=== PATIENT | male | born 1965 | race Caucasian/White ===

== ENCOUNTER 2023-04-05 11:41 | Emergency (ER) | payer BC, SELFPAY ==
[2023-04-05 11:48] VITALS: BP 129/82; PULSE 81; RESP 17; TEMP 36.8; O2SAT 96; BMI 22.3
--- NOTE | 2023-04-05 11:54 | W.ED.EPISTAX ---
HPI - Epistaxis General: Chief complaint: Epistaxis Stated complaint: nose bleed, on blood thiners Time Seen by Provider: 04/05/23 11:46 Source: patient Mode of arrival: ambulatory Limitations: no limitations History of Present Illness: 57-year-old male states that he is on Brilinta he states he had a sinus infection he been blowing his nose frequently and states that this morning at 330 started having a nosebleed from the right nare. He states has not been able to get it to stop. Associated symptoms: Deny fever(s), headache(s) or vomiting Review of Systems Const: Denies: fever(s), chills, body aches or change in appetite ENMT: Reports: epistaxis; Denies: throat pain or dental pain Card: Denies: chest pain Resp: Denies: dyspnea GI: Denies: abdominal pain, nausea, vomiting or diarrhea : Denies: dysuria Musc: Denies: neck pain or back pain Skin/Breast: Denies: rash Neuro: Denies: headache(s) Physical Exam Const: COMMON NORMALS: no acute distress, patient oriented x3 and healthy appearing HENMT: COMMON NORMALS: normocephalic and atraumatic HEAD & SCALP: normocephalic and atraumatic OTHER: Epistaxis from right nare Eye: COMMON NORMALS: Equal, round and reactive pupils present and EOMs intact bilaterally PUPIL: Yes Equal, round and reactive pupils present Neck/C-Spine: COMMON NORMALS: full ROM and supple Chest: COMMONS NORMALS: normal inspection of the chest Resp: COMMON NORMALS: normal respiratory effort Cardio: COMMON NORMALS: regular rate RATE: regular rate Extremity: COMMON NORMALS: normal to inspection Neuro: COMMON NORMALS: patient oriented x3, moves all extremities and no focal motor deficits Psych: COMMON NORMALS: mental status grossly normal Skin: COMMON NORMALS: no rashes or lesions noted and no wounds GENERAL SKIN EXAM: no rashes or lesions noted Procedures Epistaxis Control Time Out Performed: Yes Nostril: right Device Inserted: hemostatic balloon (rhinorocket) Patient Tolerated Procedure: well Complications: continued epistaxis Course Vital Signs: Vital signs: Vital Signs Temperature 98.3 F 04/05/23 11:48 Pulse Rate 81 04/05/23 11:48 Respiratory Rate 17 04/05/23 11:48 Blood Pressure 129/82 04/05/23 11:48 Pulse Oximetry 96 04/05/23 11:48 Oxygen Delivery Me thod Room Air 04/05/23 11:48 MDM - Epistaxis Medical Decision Making Patient presents here with nosebleed did attempt a nasal clamp but he continued to bleed a Rhino Rocket was placed in his stop bleeding he is return in 2 days for Rhino Rocket removal we will place him on Keflex he is stable for discharge at this time Medical Records I reviewed the patient's medical records. No radiology studies performed this visit Discharge Plan Discharge Patient Disposition: Home Clinical Impression: Epistaxis Condition: Stable Prescriptions: New cephalexin 500 mg capsule 500 mg PO TID 3 Days Qty: 9 0RF No Action Toprol XL 50 mg Tablet Extended Release 24 Hr 50 mg PO QAM lisinopril 20 mg Tablet 20 mg PO QAM Aspir-81 81 mg Tablet,Delayed Release (Dr/Ec) 81 mg PO QAM Tylenol Ex Str Rapid Release 500 mg Tablet 500 mg PO Q6H PRN (Reason: Pain) Claritin 10 mg Tablet 10 mg PO DAILY PRN (Reason: Allergy Symptoms) Flovent HFA 110 mcg/actuation Hfa Aerosol Inhaler 2 puff INHALATION BID Brilinta 90 mg Tablet 90 mg PO Q12H Mucinex 600 mg Tablet Extended Release 12hr 600 mg PO BID PRN (Reason: Congestion) Discharge Orders: Discharge ED (Routine); Ordered 04/05/23 Ordered By: Coy Morataya Discharge Diet: Advance as tolerated Discharge Activity: Resume usual activity Patient Instructions: Nosebleed (ED) Coding Level of Care Code ED [employer]yl[employer]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
[2023-04-05] MEDS: oxymetazoline 0.05% Nasal Spray 15 mL 2 SPRAY NOSTRIL-B (11:55)
== END 2023-04-05 13:21 | disposition home or self-care (01) ==
PROVIDERS: Emergency Provider Emergency Medicine; PCP Physical Medicine & Rehabilitation
DX: R04.0 Epistaxis (principal); Z79.82 Long term (current) use of aspirin
CPT/HCPCS: 30901; 99283

== ENCOUNTER 2023-04-06 08:50 | Emergency (ER) | payer BC, MEDICAID, SELFPAY ==
[2023-04-06 09:00] VITALS: BP 157/90; PULSE 98; RESP 16; TEMP 36.7; O2SAT 97; BMI 22.3
--- NOTE | 2023-04-06 10:04 | W.ED.EPISTAX ---
HPI - Epistaxis General: Chief complaint: Upper Respiratory Infection Stated complaint: was here yesterday, runny nose Time Seen by Provider: 04/06/23 09:45 Source: patient Mode of arrival: ambulatory Limitations: no limitations History of Present Illness: 57-year-old male is seen here yesterday had epistaxis he had a nasal packing placed he is back today wanting the nasal packing removed he has not had any bleeding around it has had some discomfort has no other complaints. Associated symptoms: Deny fever(s), headache(s) or vomiting Review of Systems Const: Denies: fever(s), chills, body aches or change in appetite ENMT: Reports: epistaxis; Denies: throat pain or dental pain Card: Denies: chest pain Resp: Denies: dyspnea GI: Denies: abdominal pain, nausea, vomiting or diarrhea Musc: Denies: neck pain or back pain Skin/Breast: Denies: rash Neuro: Denies: headache(s) Physical Exam Const: COMMON NORMALS: no acute distress and patient oriented x3 HENMT: COMMON NORMALS: normocephalic HEAD & SCALP: normocephalic OTHER: Rhino Rocket in place to right nare Eye: COMMON NORMALS: conjunctivae normal CONJUNCTIVA: Yes conjunctivae normal Neck/C-Spine: COMMON NORMALS: supple Chest: COMMONS NORMALS: normal inspection of the chest Resp: COMMON NORMALS: normal respiratory effort Extremity: COMMON NORMALS: normal to inspection Neuro: COMMON NORMALS: patient oriented x3 Psych: COMMON NORMALS: mental status grossly normal Skin: COMMON NORMALS: no rashes or lesions noted GENERAL SKIN EXAM: no rashes or lesions noted Course Vital Signs: Vital signs: Vital Signs Temperature 98.1 F 04/06/23 09:00 Pulse Rate 87 04/06/23 10:32 Respiratory Rate 16 04/06/23 10:32 Blood Pressure 162/112 04/06/23 10:32 Pulse Oximetry 97 04/06/23 10:32 Oxygen Delivery Me thod Room Air 04/06/23 10:13 MDM - Epistaxis Medical Decision Making Patient presents with a nosebleed did remove the Rhino Rocket bleeding is stopped he is stable for discharge we will get him follow-up with ENT he is return if a starts having bleeding again he understands agrees to plan Medical Records I reviewed the patient's medical records. No radiology studies performed this visit Discharge Plan Discharge Patient Disposition: Home Clinical Impression: Epistaxis Condition: Stable Prescriptions: No Action Toprol XL 50 mg Tablet Extended Release 24 Hr 50 mg PO QAM lisinopril 20 mg Tablet 20 mg PO QAM Aspir-81 81 mg Tablet,Delayed Release (Dr/Ec) 81 mg PO QAM Tylenol Ex Str Rapid Release 500 mg Tablet 500 mg PO Q6H PRN (Reason: Pain) Claritin 10 mg Tablet 10 mg PO DAILY PRN (Reason: Allergy Symptoms) Flovent HFA 110 mcg/actuation Hfa Aerosol Inhaler 2 puff INHALATION BID Brilinta 90 mg Tablet 90 mg PO Q12H Mucinex 600 mg Tablet Extended Release 12hr 600 mg PO BID PRN (Reason: Congestion) cephalexin 500 mg capsule 500 mg PO TID 3 Days Qty: 9 0RF Discharge Orders: Discharge ED (Routine); Ordered 04/06/23 Ordered By: Coy Morataya Referrals: Amaury Rush MD [Physician] - 1-3 days Discharge Diet: Advance as tolerated Discharge Activity: Resume usual activity Patient Instructions: Nosebleed (ED) Coding Level of Care Code ED [employer] for Мария Miles
--- NOTE | 2023-04-06 10:11 | PC.NURSE ---
RN ASSUMED CARE AT THIS TIME
[2023-04-06 10:13] VITALS: BP 165/109; PULSE 92; RESP 16; O2SAT 97
[2023-04-06 10:32] VITALS: BP 162/112; PULSE 87; RESP 16; O2SAT 97
--- NOTE | 2023-04-08 17:12 | DCPLANNER ---
I faxed patients chart to ENT Dr. Rush office on 04/08/23 at [phone]. Clinic to contact patient. Faxed to [phone]
== END 2023-04-06 10:37 | disposition home or self-care (01) ==
PROVIDERS: Emergency Provider Emergency Medicine
DX: R04.0 Epistaxis (principal); Z79.82 Long term (current) use of aspirin
CPT/HCPCS: 99281